=== PATIENT | female | born 1985 | race Caucasian/White ===

== ENCOUNTER 2017-04-05 18:59 | Emergency (ER) | payer OTHER ==
[~2017-04-05] VITALS: Ht 160 cm; Wt 61.2 kg
[2017-04-05] MEDS ORDERED: HYDROCODONE BIT1 T11 PO (19:22)
[2017-04-05] MEDS ORDERED: CLINDAMYCIN HC300 MG PO (19:22)
== END 2017-04-05 19:41 | disposition home or self-care (01) ==
LOC: ED 18:59
DX: K61.0 Anal abscess (principal); F17.200 Nicotine dependence, unspecified, uncomplicated; Z88.0 Allergy status to penicillin

== ENCOUNTER 2017-04-12 11:21 | Emergency (ER) | payer OTHER ==
[~2017-04-12] VITALS: Wt 59.0 kg
[~2017-04-12 11:21] MED LIST: CLINDAMYCIN HC300 MG PO; HYDROCODONE BIT1 T11 PO
== END 2017-04-12 12:25 | disposition home or self-care (01) ==
LOC: ED 11:21
DX: T37.0X5A Adverse effect of sulfonamides, initial encounter (principal); F17.200 Nicotine dependence, unspecified, uncomplicated; Z88.0 Allergy status to penicillin; Z88.2 Allergy status to sulfonamides; Y92.9 Unspecified place or not applicable

== ENCOUNTER 2017-07-13 13:05 | Emergency (ER) | payer OTHER ==
[~2017-07-13] VITALS: Ht 162.5 cm; Wt 64.4 kg
[2017-07-13 13:56] LABS: BASO % 0.6 % (0.0-1.0); EOS % 0.5 % (1.0-4.0); HEMOGLOBIN 15.8 g/dl (12.0-16.0); LYMPH # 1.7 10*3/uL (1.3-4.4); LYMPH % 27.1 % (27.0-41.0); MEAN CELL VOLUME 91.1 fl (81.0-99.0); MEAN CORPUSCULAR HGB 32.7 pg (27.0-31.0); MEAN CORPUSCULAR HGB CONC 35.9 g/dl (33.0-37.0); MEAN PLATELET VOLUME 9.4 fl (9.6-12.3); MONO # 0.5 10*3/uL (0.1-1.0); MONO % 8.7 % (3.0-9.0); NEUT # 3.9 10*3/uL (2.3-7.9); NEUT % 62.6 % (47.0-73.0); PLATELET COUNT AUTOMATED 306 10*3/uL (130-400); RED BLOOD COUNT 4.83 10*6/uL (4.10-5.10); WHITE BLOOD COUNT 6.2 10*3/uL (4.8-10.8)
[2017-07-13 14:13] LABS: ALBUMIN 4.2 gm/dl (3.1-4.5); ALKALINE PHOSPHATASE 79 U/L (45-117); BUN 16 mg/dl (7-24); CHLORIDE 105 mmol/L (98-107); CREATININE 0.87 mg/dL (0.55-1.02); POTASSIUM 3.7 mmol/L (3.5-5.1); SGOT/AST 17 IU/L (3-35); SGPT/ALT 21 U/L (12-78); SODIUM 138 mmol/L (136-145)
[2017-07-13] MEDS ORDERED: ULTRAM50 MG PO (14:45)
== END 2017-07-13 14:52 | disposition home or self-care (01) ==
LOC: ED 13:05
PROVIDERS: Physician Assistant
DX: K08.89 Other specified disorders of teeth and supporting structures (principal); F17.200 Nicotine dependence, unspecified, uncomplicated; Z88.0 Allergy status to penicillin; Z88.2 Allergy status to sulfonamides

== ENCOUNTER 2017-07-21 18:08 | Emergency (ER) | payer OTHER ==
[~2017-07-21] VITALS: Ht 162.5 cm; Wt 63.5 kg
[~2017-07-21 18:08] MED LIST changes: +ULTRAM50 MG PO
[2017-07-21] MEDS ORDERED: BUSPAR5 MG PO (18:15)
[2017-07-21] MEDS ORDERED: DICYCLOMINE HCL20 MG PO (18:15)
[2017-07-21 18:41] LABS: BASO % 0.6 % (0.0-1.0); EOS # 0.1 10*3/uL (0.0-0.4); HEMATOCRIT 42.4 % (37.0-47.0); LYMPH # 1.8 10*3/uL (1.3-4.4); LYMPH % 25.5 % (27.0-41.0); MEAN CELL VOLUME 92.8 fl (81.0-99.0); MEAN CORPUSCULAR HGB 32.8 pg (27.0-31.0); MEAN CORPUSCULAR HGB CONC 35.4 g/dl (33.0-37.0); MEAN PLATELET VOLUME 9.3 fl (9.6-12.3); MONO # 0.5 10*3/uL (0.1-1.0); MONO % 6.7 % (3.0-9.0); NEUT # 4.5 10*3/uL (2.3-7.9); NEUT % 65.9 % (47.0-73.0); PLATELET COUNT AUTOMATED 313 10*3/uL (130-400); RED BLOOD COUNT 4.57 10*6/uL (4.10-5.10); WHITE BLOOD COUNT 6.9 10*3/uL (4.8-10.8)
[2017-07-21 18:46] LABS: BILIRUBIN NEGATIVE (NEGATIVE); BLOOD 3+ (NEGATIVE); CLARITY SL CLOUDY (CLEAR); COLOR YELLOW (YELLOW); GLUCOSE NEGATIVE (NEGATIVE); KETONE NEGATIVE (NEGATIVE); LEUKO ESTERASE 1+ (NEGATIVE); NITRITE NEGATIVE (NEGATIVE); UROBILINOGEN 0.2 E.U./dl (0.2-1.0)
[2017-07-21 18:55] LABS: URINE AMPHETAMINES < 1000 (1000ng/ml); URINE BARBITURATES < 200 (200ng/ml); URINE BENZODIAZEPINES < 200 (200ng/ml); URINE CANNABINOIDS (THC) > 50 (50ng/ml); URINE COCAINE < 300 (300ng/ml); URINE METHADONE < 300 (300ng/ml); URINE OPIATES < 300 (300ng/ml)
[2017-07-21 18:56] LABS: URINE PHENCYCLIDINE < 25 (25ng/ml)
[2017-07-21 19:01] LABS: ALKALINE PHOSPHATASE 83 U/L (45-117); BUN 10 mg/dl (7-24); CHLORIDE 102 mmol/L (98-107); CREATININE 0.83 mg/dL (0.55-1.02); POTASSIUM 3.6 mmol/L (3.5-5.1); SGOT/AST 20 IU/L (3-35); SGPT/ALT 28 U/L (12-78); SODIUM 141 mmol/L (136-145); TOTAL PROTEIN 7.7 gm/dL (6.4-8.2)
[2017-07-21 19:10] LABS: B-hCG (QUALITATIVE) NEGATIVE (NEGATIVE)
[2017-07-21 19:12] LABS: ACETAMINOPHEN (TYLENOL) < 2.0 ug/ml (10-30); ETHYL ALCOHOL < 3.0 mg/dl (<3)
== END 2017-07-22 14:53 | disposition home health service (06) ==
LOC: ED 18:08
PROVIDERS: Physician Assistant
DX: R45.851 Suicidal ideations (principal); F32.9 Major depressive disorder, single episode, unspecified; Z88.0 Allergy status to penicillin; Z88.2 Allergy status to sulfonamides; F17.200 Nicotine dependence, unspecified, uncomplicated; Z90.49 Acquired absence of other specified parts of digestive tract

== ENCOUNTER 2017-08-13 07:02 | Emergency (ER) | payer OTHER ==
[~2017-08-13] VITALS: Ht 162.5 cm; Wt 62.6 kg
[~2017-08-13 07:02] MED LIST changes: +BUSPAR5 MG PO; +DICYCLOMINE HCL20 MG PO
[2017-08-13 07:43] LABS: BASO % 0.5 % (0.0-1.0); EOS # 0.1 10*3/uL (0.0-0.4); HEMATOCRIT 39.7 % (37.0-47.0); HEMOGLOBIN 14.2 g/dl (12.0-16.0); LYMPH # 1.9 10*3/uL (1.3-4.4); LYMPH % 32.1 % (27.0-41.0); MEAN CELL VOLUME 92.3 fl (81.0-99.0); MEAN CORPUSCULAR HGB CONC 35.8 g/dl (33.0-37.0); MEAN PLATELET VOLUME 9.6 fl (9.6-12.3); MONO # 0.5 10*3/uL (0.1-1.0); MONO % 7.6 % (3.0-9.0); NEUT # 3.6 10*3/uL (2.3-7.9); NEUT % 58.6 % (47.0-73.0); PLATELET COUNT AUTOMATED 253 10*3/uL (130-400); RED CELL DISTRI WIDTH 11.9 % (0-14.5); WHITE BLOOD COUNT 6.1 10*3/uL (4.8-10.8)
[2017-08-13 07:57] LABS: ALBUMIN 3.7 gm/dl (3.1-4.5); ALKALINE PHOSPHATASE 95 U/L (45-117); BUN 24 mg/dl (7-24); CHLORIDE 104 mmol/L (98-107); CREATININE 0.88 mg/dL (0.55-1.02); POTASSIUM 3.7 mmol/L (3.5-5.1); SGOT/AST 14 IU/L (3-35); SGPT/ALT 24 U/L (12-78); SODIUM 136 mmol/L (136-145)
[2017-08-13] MEDS ORDERED: KEFLEX500 M1 PO (08:42)
[2017-08-13] MEDS ORDERED: IBU800 MG PO (08:42)
== END 2017-08-13 08:49 | disposition home or self-care (01) ==
LOC: ED 07:02
PROVIDERS: Internal Medicine
DX: L05.91 Pilonidal cyst without abscess (principal); F17.200 Nicotine dependence, unspecified, uncomplicated; Z88.0 Allergy status to penicillin; Z88.2 Allergy status to sulfonamides

== ENCOUNTER → 2018-11-04 | Day surgery (SDC) | payer OTHER ==
[~2018-11-04] VITALS: Ht 160 cm; Wt 68.0 kg
[2018-11-04] VITALS (8 sets, daily range): BP systolic 88–116; BP diastolic 46–64
[~2018-11-04] MED LIST changes: +BUSPIRONE HCL10 MG PO; +CIPRO500 MG PO; +ESCITALOPRAM OX10 MG PO; +IBU800 MG PO; +KEFLEX500 M1 PO; +NORCO 5-325 TA1 EACH PO
--- NOTE | ~2018-11-04 | O ---
[place], [place] OPERATIVE NOTE NAME: CORINNA LAGUNA UNIT #: [id number] ROOM: DOCTOR: PRO CASTRO MD BIRTHDATE: [birth year] DOS: 11/04/2018 PREOPERATIVE DIAGNOSIS: [id number]. POSTOPERATIVE DIAGNOSIS: [id number]. PROCEDURE: Fistulotomy. SURGEON: Pro Castro MD. SLURRY BLENDER: PIA. ANESTHESIA: LMA with local. INDICATIONS: This is a 33-year-old lady with a right-sided [id number] at approximately 3 o'clock position who is here for the above-mentioned procedure. The procedure and its complications were explained to the patient in detail preoperatively. Complications that were discussed included, but were not limited to bleeding, recurrence, prolonged postoperative pain, and damage to lying vital structures. She agreed to proceed. DESCRIPTION OF PROCEDURE: After identifying the patient, the patient was brought to the operating suite and laid in the supine position. After induction of general anesthesia, the patient was placed in lithotomy position and a time-out procedure was called. The parts were then painted and draped in the usual sterile fashion. A digital rectal exam was performed, which was within normal limits. At the external opening, which was at approximately 9 o'clock position, a probe was passed and the internal opening was not visualized. At this point, in order to confirm an internal opening, some methylene blue was injected through the external opening and this was seen to emanate from the internal opening in the anal canal. This was a low lying fistula. The probe was placed again between the internal and the external openings and an incision was made with the help of a knife until the entire tract was laid open. Hemostasis was achieved with the help of electrocautery. Local anesthesia was infiltrated for pain control. A quarter inch pack was placed and a dressing was placed on top of that. The patient tolerated the procedure well. She was placed back in a supine position, extubated and brought back to the recovery in a stable fashion. There were no complications. Dr. Pro Castro, the attending surgeon, was present throughout the operating case. [place], [place] OPERATIVE NOTE NAME: CORINNA LAGUNA UNIT #: [id number] ROOM: DOCTOR: PRO CASTRO MD BIRTHDATE: [birth year] Pro Castro MD CM:OPRECORD:OPERATIVE NOTE [id number] PRO CASTRO MD 11/04/18 1154 interface
[2018-11-04 08:14] LABS: BASO % 0.3 % (0.0-1.0); BILIRUBIN NEGATIVE (NEGATIVE); BLOOD NEGATIVE (NEGATIVE); CLARITY CLOUDY (CLEAR); COLOR YELLOW (YELLOW); EOS # 0.1 10*3/uL (0.0-0.4); EOS % 0.9 % (1.0-4.0); GLUCOSE NEGATIVE (NEGATIVE); HEMATOCRIT 42.4 % (37.0-47.0); HEMOGLOBIN 14.9 g/dl (12.0-16.0); KETONE NEGATIVE (NEGATIVE); LEUKO ESTERASE 2+ (NEGATIVE); LYMPH # 2.4 10*3/uL (1.3-4.4); LYMPH % 25.3 % (27.0-41.0); MEAN CELL VOLUME 93.8 fl (81.0-99.0); MEAN CORPUSCULAR HGB CONC 35.1 g/dl (33.0-37.0); MONO # 0.6 10*3/uL (0.1-1.0); MONO % 6.9 % (3.0-9.0); NEUT # 6.2 10*3/uL (2.3-7.9); NEUT % 66.3 % (47.0-73.0); NITRITE NEGATIVE (NEGATIVE); PLATELET COUNT AUTOMATED 347 10*3/uL (130-400); RED BLOOD COUNT 4.52 10*6/uL (4.10-5.10); RED CELL DISTRI WIDTH 12.8 % (0-14.5); SPECIFIC GRAVITY 1.025 (1.005-1.030); UROBILINOGEN 0.2 E.U./dl (0.2-1.0); WHITE BLOOD COUNT 9.3 10*3/uL (4.8-10.8)
[2018-11-04 08:25] LABS: BACTERIA 3+; EPITHELIAL CELLS 30-40; RBC 21-30 rbc/hpf (0-2); WBC 41-50 wbc/hpf (0-5)
[2018-11-04 08:32] LABS: BUN 22 mg/dl (7-24); CHLORIDE 108 mmol/L (98-107); CREATININE 0.91 mg/dL (0.55-1.02); POTASSIUM 4.1 mmol/L (3.5-5.1); SODIUM 141 mmol/L (136-145)
== END | disposition home or self-care (01) ==
LOC: SDC 11-01 10:15
PROVIDERS: Surgery
DX: K60.3 Anal fistula (principal); F41.9 Anxiety disorder, unspecified; F32.9 Major depressive disorder, single episode, unspecified; F17.210 Nicotine dependence, cigarettes, uncomplicated; F12.90 Cannabis use, unspecified, uncomplicated; J45.909 Unspecified asthma, uncomplicated; Z91.018 Allergy to other foods; Z88.0 Allergy status to penicillin; Z88.2 Allergy status to sulfonamides; Z88.1 Allergy status to other antibiotic agents; Z79.2 Long term (current) use of antibiotics; Z88.8 Allergy status to other drugs, medicaments and biological substances; Z98.890 Other specified postprocedural states; Z90.49 Acquired absence of other specified parts of digestive tract; Z72.89 Other problems related to lifestyle; Z79.899 Other long term (current) drug therapy; Z82.49 Family history of ischemic heart disease and other diseases of the circulatory system

== ENCOUNTER → 2019-06-06 | Outpatient (CLI) | payer OTHER | END | disposition home or self-care (01) | LOC: RAD 14:10 | DX: M25.532 Pain in left wrist (principal) ==

== ENCOUNTER → 2019-06-08 | Outpatient (CLI) | payer OTHER ==
[2019-06-08 09:50] LABS: BASO % 0.3 % (0.0-1.0); EOS % 0.6 % (1.0-4.0); HEMATOCRIT 41.2 % (37.0-47.0); HEMOGLOBIN 14.4 g/dl (12.0-16.0); LYMPH % 28.5 % (27.0-41.0); MEAN CELL VOLUME 95.8 fl (81.0-99.0); MEAN CORPUSCULAR HGB 33.5 pg (27.0-31.0); MEAN PLATELET VOLUME 9.3 fl (9.6-12.3); MONO # 0.5 10*3/uL (0.1-1.0); MONO % 6.5 % (3.0-9.0); NEUT # 4.4 10*3/uL (2.3-7.9); NEUT % 63.8 % (47.0-73.0); PLATELET COUNT AUTOMATED 310 10*3/uL (130-400); RED CELL DISTRI WIDTH 11.9 % (0-14.5)
[2019-06-08 10:19] LABS: CHOLESTEROL 235 mg/dL (<200); HDL CHOLESTEROL 58 mg/dl (40-60)
[2019-06-08 10:28] LABS: LDL CHOLESTEROL 143 mg/dL (9-159); TRIGLYCERIDES 172 mg/dl (<150); VLDL CHOLESTEROL 34 mg/dL (6-40)
[2019-06-09 08:04] LABS: RHEUMATOID ARTHRITIS FACTOR <10.0 IU/mL (0.0-13.9)
[2019-06-09 12:06] LABS: ANTI-DSDNA ANTIBODIES 096339 3 IU/mL (0-9); ANTI-RNP ANTIBODIES <0.2 AI (0.0-0.9); ANTICHROMATIN ANTIBODIES 0.3 AI (0.0-0.9); ANTISCLERODERMA-70 AB <0.2 AI (0.0-0.9); SJOGREN ANTI-SS-A <0.2 AI (0.0-0.9); SJOREN AB, ANTI-SS-B <0.2 AI (0.0-0.9)
[2019-06-10 00:01] LABS: CCP ANTIBODIES IGG/IGA 7 units (0-19)
[2019-06-10 01:03] LABS: DILUTE PROTHROMBIN TIME 46.3 sec (0.0-55.0); DPT CONFIRM RATIO 1.33 Ratio (0.00-1.40); PTT-LA 46.5 sec (0.0-51.9); THROMBIN TIME 17.4 sec (0.0-23.0)
[2019-06-10 08:04] LABS: LUPUS DRVVT 59.7 sec (0.0-47.0)
[2019-06-10 10:02] LABS: LUPUS REFLEX INTERPRETATION Comment: (.)
[2019-06-10 16:19] LABS: HEXRFX RFX
== END | disposition home or self-care (01) ==
LOC: LAB 09:27
PROVIDERS: Nurse Practitioner Family
DX: Z13.220 Encounter for screening for lipoid disorders (principal); M25.519 Pain in unspecified shoulder; F32.9 Major depressive disorder, single episode, unspecified; M79.2 Neuralgia and neuritis, unspecified; Z83.49 Family history of other endocrine, nutritional and metabolic diseases; E55.9 Vitamin D deficiency, unspecified; Z82.49 Family history of ischemic heart disease and other diseases of the circulatory system; F17.210 Nicotine dependence, cigarettes, uncomplicated; Z84.0 Family history of diseases of the skin and subcutaneous tissue

== ENCOUNTER → 2020-04-23 | Outpatient (CLI) | payer OTHER ==
[2020-04-23 15:42] LABS: BASO % 0.6 % (0.0-1.0); EOS # 0.1 10*3/uL (0.0-0.4); EOS % 1.7 % (1.0-4.0); HEMATOCRIT 37.5 % (37.0-47.0); LYMPH # 1.5 10*3/uL (1.3-4.4); LYMPH % 21.2 % (27.0-41.0); MEAN CELL VOLUME 94.5 fl (81.0-99.0); MEAN CORPUSCULAR HGB 31.7 pg (27.0-31.0); MEAN CORPUSCULAR HGB CONC 33.6 g/dl (33.0-37.0); MEAN PLATELET VOLUME 9.4 fl (9.6-12.3); MONO # 0.6 10*3/uL (0.1-1.0); MONO % 8.3 % (3.0-9.0); NEUT # 4.8 10*3/uL (2.3-7.9); NEUT % 67.8 % (47.0-73.0); PLATELET COUNT AUTOMATED 255 10*3/uL (130-400); RED BLOOD COUNT 3.97 10*6/uL (4.10-5.10); RED CELL DISTRI WIDTH 12.3 % (0-14.5); WHITE BLOOD COUNT 7.1 10*3/uL (4.8-10.8)
[2020-04-23 15:56] LABS: BILIRUBIN NEGATIVE (NEGATIVE); CLARITY CLEAR (CLEAR); COLOR YELLOW (YELLOW); GLUCOSE NEGATIVE (NEGATIVE); KETONE NEGATIVE (NEGATIVE)
[2020-04-23 15:57] LABS: BLOOD NEGATIVE (NEGATIVE); LEUKO ESTERASE 1+ (NEGATIVE); NITRITE NEGATIVE (NEGATIVE); SPECIFIC GRAVITY 1.025 (1.005-1.030); UROBILINOGEN 0.2 E.U./dl (0.2-1.0)
[2020-04-23 16:08] LABS: BACTERIA 1+; EPITHELIAL CELLS 21-30; MUCOUS 1+
== END | disposition home or self-care (01) ==
LOC: LAB 15:11
PROVIDERS: Nurse Practitioner Family
DX: D72.829 Elevated white blood cell count, unspecified (principal)

== ENCOUNTER → 2021-09-20 | Outpatient (CLI) | payer OTHER | END | disposition home or self-care (01) | LOC: US 08:19 | PROVIDERS: ATTEND Nurse Practitioner Family | DX: E04.1 Nontoxic single thyroid nodule (principal) ==

== ENCOUNTER → 2021-12-09 | Outpatient (CLI) | payer OTHER ==
[2021-12-09 12:26] LABS: BUN 18 mg/dl (7-24); CHLORIDE 106 mmol/L (98-107); CREATININE 0.92 mg/dL (0.55-1.02); POTASSIUM 3.8 mmol/L (3.5-5.1); SODIUM 140 mmol/L (136-145)
== END | disposition home or self-care (01) ==
LOC: LAB 11:59
PROVIDERS: ATTEND Nurse Practitioner Family
DX: R10.84 Generalized abdominal pain (principal)